=== PATIENT | male | born 2000 | race Two or more races ===

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

== ENCOUNTER → 2019-02-18 | Emergency (ER) | payer OTHER ==
[~2019-02-18] VITALS: Ht 160 cm; Wt 47.6 kg
[~2019-02-18] MED LIST changes: +DUI500 PO; +KETO10TA2 PO
== END ==
LOC: ER 23:20
DX: S05.41XA Penetrating wound of orbit with or without foreign body, right eye, initial encounter (principal); W01.118A Fall on same level from slipping, tripping and stumbling with subsequent striking against other sharp object, initial encounter; Y93.89 Activity, other specified; Y92.098 Other place in other non-institutional residence as the place of occurrence of the external cause; Y99.8 Other external cause status

== ENCOUNTER 2020-04-27 10:47 | Emergency (ER) | payer OTHER ==
[~2020-04-27] VITALS: Ht 157.5 cm; Wt 49.9 kg
[2020-04-27] MEDS ORDERED: AMOX1TAB5 PO (12:36)
== END 2020-04-27 13:16 | disposition home or self-care (01) ==
LOC: ER 10:47 → EMR PED 11:17 → ER 11:17 → EMR PED 13:16
DX: S51.822A Laceration with foreign body of left forearm, initial encounter (principal); W45.8XXA Other foreign body or object entering through skin, initial encounter; Y93.89 Activity, other specified; Y92.098 Other place in other non-institutional residence as the place of occurrence of the external cause; Y99.8 Other external cause status

== ENCOUNTER 2020-05-07 14:51 | Emergency (ER) | payer OTHER ==
[~2020-05-07] VITALS: Ht 157.5 cm; Wt 52.2 kg
[~2020-05-07 14:51] MED LIST changes: +AMOX1TAB5 PO
== END 2020-05-07 16:36 | disposition home or self-care (01) ==
LOC: ER 14:51 → EMR PED 15:35
DX: Z48.02 Encounter for removal of sutures (principal)